=== PATIENT | female | born 1990 | race American Indian/Alaskan Native ===

== ENCOUNTER 2021-03-28 17:00 | Emergency (ER) | payer MEDICAID ==
[2021-03-28 19:32] VITALS: BP 123/73
[2021-03-28] MEDS ORDERED: predniSONE 20 MG TAB PO ONE (20:18)
[2021-03-28] MEDS ORDERED: IBUPROFEN 600 MG TAB PO ONE (20:18)
[2021-03-28] MEDS ORDERED: CYCLOBENZAPRINE 10 MG TAB PO ONE (20:18)
--- NOTE | 2021-03-28 21:06 | Emergency Department Report ---
ED Extremity Problem HPI - General Chief complaint: Extremity Injury, Lower Stated complaint: LEFT LEG INJURY Source: patient Mode of arrival: Ambulatory Limitations: No Limitations - History of Present Illness Initial comments: Patient is a 30-year-old -[place] female with no past medical history except chronic left thigh pain from an old left thigh tricep injuries presents to the ED with acute exacerbation of her chronic left thigh pain for the last 1 week, worse in the last 2 days. Patient states that the pain is worse with any ambulation or palpation of the left thigh and at times the pain wakes her up from her sleep because usually sleeps on the left side. Patient states that she previously told ligament on her left thigh muscles 3 years ago and was supposed to undergo surgery but decided not to do it. Patient states that over the years the pain has been persistent with occasional worsening episodes. Patient states that in the last 1 week, the pain has worsened especially with ambulation and even at rest. Patient denies fall, traumatic injury, heavy lifting, nausea and vomiting, back pain, hip pain, chest pain or shortness of breath, numbness and tingling or weakness of left leg, headache, dizziness, fever and chills. MD Complaint: extremity pain (anterior left thigh pain) -: Sudden, year(s) (3) Location: lower extremity (anterior left thigh pain) History of Same: Yes (chronic left thigh pain from an older muscle and tendon injury) -: Yes arthralgia, No fever, No associated dyspnea, No associated chest pain Radiation: proximal Severity scale (0 -10): 8 Quality: aching, sharp Consistency: constant Improves with: nothing Worsens with: weight bearing, walking, exertion, palpation Associated Symptoms: denies other symptoms, myalgias, arthralgias (Anterior left thigh pain). denies: chest pain, shortness of breath, fever, rash - Related Data Previous Rx's Medication Instructions Recorded Last Taken Type Baclofen 20 mg PO Q12H PRN #30 tablet 03/28/21 Unknown Rx Naproxen 500 mg PO Q12H PRN #30 tablet 03/28/21 Unknown Rx predniSONE [Deltasone] 40 mg PO QDAY #10 tab 03/28/21 Unknown Rx traMADoL [Ultram] 50 mg PO Q6HR PRN #12 tablet 03/28/21 Unknown Rx Allergies Allergy/AdvReac Type Severity Reaction Status Date / Time No Known Allergies Allergy Unverified 03/28/21 19:30 ED Review of Systems ROS: Stated complaint: LEFT LEG INJURY Other details as noted in HPI Constitutional: denies: chills, fever Eyes: denies: eye pain, eye discharge, vision change ENT: denies: ear pain, throat pain Respiratory: denies: cough, shortness of breath, wheezing Cardiovascular: denies: chest pain, palpitations Endocrine: no symptoms reported Gastrointestinal: denies: abdominal pain, nausea, diarrhea Genitourinary: denies: urgency, dysuria, discharge Musculoskeletal: arthralgia (anterior left thigh pain), myalgia. denies: back pain, joint swelling Skin: denies: rash, lesions Neurological: denies: headache, weakness, paresthesias Psychiatric: denies: anxiety, depression Hematological/Lymphatic: denies: easy bleeding, easy bruising ED Past Medical Hx - Past Medical History Additional medical history: Chronic left thigh pain - Social History Smoking Status: Former Smoker - Medications Home Medications: Home Medications Medication Instructions Recorded Confirmed Last Taken Type Baclofen 20 mg PO Q12H PRN #30 tablet 03/28/21 Unknown Rx Naproxen 500 mg PO Q12H PRN #30 tablet 03/28/21 Unknown Rx predniSONE [Deltasone] 40 mg PO QDAY #10 tab 03/28/21 Unknown Rx traMADoL [Ultram] 50 mg PO Q6HR PRN #12 tablet 03/28/21 Unknown Rx ED Physical Exam - General Limitations: No Limitations General appearance: alert, in no apparent distress - Head Head exam: Present: atraumatic, normocephalic, normal inspection - Eye Eye exam: Present: normal appearance, PERRL, EOMI Pupils: Present: normal accommodation - ENT ENT exam: Present: normal exam, normal orophraynx, mucous membranes moist, TM's normal bilaterally, normal external ear exam - Neck Neck exam: Present: normal inspection, full ROM - Respiratory Respiratory exam: Present: normal lung sounds bilaterally. Absent: respiratory distress, wheezes, rales, rhonchi, chest wall tenderness, accessory muscle use, decreased breath sounds, prolonged expiratory - Cardiovascular Cardiovascular Exam: Present: regular rate, normal rhythm, normal heart sounds. Absent: systolic murmur, diastolic murmur, rubs, gallop - GI/Abdominal GI/Abdominal exam: Present: soft, normal bowel sounds. Absent: tenderness, guarding, rebound, hyperactive bowel sounds, hypoactive bowel sounds, organomegaly - Extremities Exam Extremities exam: Present: normal inspection, full ROM, tenderness (Palpable anterior left thigh tenderness), normal capillary refill. Absent: pedal edema, joint swelling, calf tenderness - Back Exam Back exam: Present: normal inspection, full ROM. Absent: tenderness, CVA tenderness (R), muscle spasm, paraspinal tenderness - Neurological Exam Neurological exam: Present: alert, oriented X3, CN II-XII intact, normal gait, reflexes normal - Psychiatric Psychiatric exam: Present: normal affect, normal mood - Skin Skin exam: Present: warm, dry, intact, normal color. Absent: rash ED Course Vital Signs 03/28/21 19:19 Temperature 97.8 F Pulse Rate 62 Respiratory 12 Rate Blood Pressure 123/73 O2 Sat by Pulse 100 Oximetry ED Medical Decision Making - Radiology Data Radiology results: report reviewed, [place] [address] Vascular Lab Report Signed Patient: ALEJANDRO JHA MR#: [id number] : 1990 Acct:[id number] Age/Sex: 30 / F ADM Date: 03/28/21 Loc: ED Attending Dr: Ordering Physician: YUDITH REY Date of Service: 03/28/21 Procedure(s): VL venous duplex LE LT Accession Number(s): [id number] cc: YUDITH REY DUPLEX DOPPLER LOWER EXTREMITY VEINS, RIGHT INDICATION / CLINICAL INFORMATION: Left thigh pain. TECHNIQUE: Duplex doppler imaging was performed through the veins of the right lower extremity using venous compression and other maneuvers. COMPARISON: None available. FINDINGS: RIGHT COMMON FEMORAL VEIN: Negative. RIGHT FEMORAL VEIN: Negative. RIGHT POPLITEAL VEIN: Negative. RIGHT CALF VEINS: Negative. ADDITIONAL FINDINGS: None. IMPRESSION: 1. No sonographic evidence for DVT in the right lower extremity. 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 Patient states that the pain is worse with any ambulation or palpation of the left thigh and at times the pain wakes her up from her sleep because usually sleeps on the left side. Patient states that she previously told ligament on her left thigh muscles 3 years ago and was supposed to undergo surgery but decided not to do it. Patient states that over the years the pain has been persistent with occasional worsening episodes. Patient states that in the last 1 week, the pain has worsened especially with ambulation and even at rest. In the ED, patient is alert and oriented x3 and is not in any distress but appears in pain. Patient was treated for pain in the ED with anti-inflammatory medications and the left leg Doppler ultrasound showed no sonographic evidence of DVT. Patient was therefore discharged home on pain medications and advised to follow-up with her primary care physician in 5 to 7 days for reevaluation. Patient otherwise advised return to the ED immediately if symptoms get worse. - Differential Diagnosis Muscle strain; Muscle spasm; DVT; Tendonitis Critical care attestation.: If time is entered above; I have spent that time in minutes in the direct care of this critically ill patient, excluding procedure time. ED Disposition Clinical Impression: Muscle spasm of left lower extremity, Chronic pain of left lower extremity Disposition: DC-01 TO HOME OR SELFCARE Is pt being admited?: No Does the pt Need Aspirin: No Condition: Stable Instructions: Muscle Cramps and Spasms, [id number], Chronic Pain, Adult, Pain Medicine Instructions, [id number] Additional Instructions: The Doppler ultrasound of left leg shows no sonographic evidence of anterior left thigh or left leg. Therefore take medication with food, drink plenty of fluids and follow-up with your primary care physician in 7 to 10 days for reevaluation. Return to the ED immediately if symptoms get worse. Prescriptions: Baclofen 20 mg PO Q12H PRN #30 tablet PRN Reason: Muscle Spasm predniSONE [Deltasone] 40 mg PO QDAY #10 tab Naproxen 500 mg PO Q12H PRN #30 tablet PRN Reason: Pain , Severe (7-10) traMADoL [Ultram] 50 mg PO Q6HR PRN #12 tablet PRN Reason: Pain Referrals: TERESA LAL MD [Primary Care Provider] - 3-5 Days Time of Disposition: 21:06 Print Language: KENYAN
--- NOTE | 2021-03-28 21:19 | Vascular Lab Report ---
DUPLEX DOPPLER LOWER EXTREMITY VEINS, RIGHT INDICATION / CLINICAL INFORMATION: Left thigh pain. TECHNIQUE: Duplex doppler imaging was performed through the veins of the right lower extremity using venous comp ression and other maneuvers. COMPARISON: None available. FINDINGS: RIGHT COMMON FEMORAL VEIN: Negative. RIGHT FEMORAL VEIN: Negative. RIGHT POPLITEAL VEIN: Negative. RIGHT CALF VEINS: Negative. ADDITIONAL FINDINGS: None. IMPRESSION: 1. No sonographic evidence for DVT in the right lower extremity. Signer Name: Kanu Cook MD Signed: 03/28/2021 9:14 PM Workstation Name: [id number]
== END 2021-03-29 | disposition home or self-care (01) ==
LOC: ED 17:00
DX: M62.838 Other muscle spasm (principal); M79.662 Pain in left lower leg; G89.29 Other chronic pain; Z87.891 Personal history of nicotine dependence; Z79.899 Other long term (current) drug therapy
CPT/HCPCS: 93971; 99283; J7512